=== PATIENT | female | born 1930 | race Caucasian/White ===

== ENCOUNTER 2018-02-18 10:04 | Emergency (ER) | payer MEDICARE, MEDICAID, OTHER ==
[2018-02-18 10:24] LABS: BEDSIDE GLUCOSE 155 MG/DL (83-110)
[2018-02-18] MEDS: NS 500 ML IV (10:26)
[2018-02-18 11:06] LABS: ABG BASE EXCESS -3.7 (-2.0-2.0); ABG HCO3 20.2 MEQ/L (22.0-26.0); ABG O2 SATURATION 98.7 % (95.0-99.0); ABG PARTIAL PRESSURE CO2 34.1 mmHg (35.0-45.0); ABG PARTIAL PRESSURE O2 125.2 mmHg (75.0-100.0); ABG STANDARD HCO3 21.5 MEQ/L (22.0-26.0); ABG TOTAL CO2 21.3 MEQ/L (23.0-31.0); ABG pH (ARTERIAL) 7.391 UNITS (7.350-7.450)
[2018-02-18 11:19] LABS: BASO # 0.1 10^3/uL (0.0-0.2); BASO % 0.2 % (0.0-1.0); HEMATOCRIT 52.2 % (36.0-47.0); HEMOGLOBIN 17.9 g/dl (12.0-15.5); IMMATURE GRANULOCYTE % 0.7 % (0-3.0); LYMPH % 3.7 % (24.0-44.0); MEAN CORPUSCULAR HGB CONC 34.3 g/dl (32.0-36.5); MEAN CORPUSCULAR VOLUME 96.3 fl (80.0-96.0); MONO # 1.7 10^3/uL (0.0-0.8); MONO % 6.6 % (0.0-5.0); NEUTROPHILS # 23.1 10^3/uL (1.8-7.7); NEUTROPHILS % 88.8 % (36.0-66.0); PLATELET COUNT, AUTOMATED 168 10^3/uL (150-450); RED BLOOD COUNT 5.42 10^6/uL (4.00-5.40); RED CELL DISTRIBUTION WIDTH 13.2 % (11.5-14.5)
[2018-02-18] MEDS: NS 1,000 ML IV (11:36)
[2018-02-18 11:42] LABS: LACTIC ACID SEPSIS PROTOCOL 5.8 MMOL/L (0.4-2.0)
[2018-02-18 11:43] LABS: AMMONIA 22 uMOL/L (<32)
[2018-02-18 11:49] LABS: ALBUMIN/GLOBULIN RATIO 1.03 (1.00-1.93); ALKALINE PHOSPHATASE 116 U/L (45-117); ALT/SGPT 17 U/L (12-78); ANION GAP 18 MEQ/L (8-16); AST/SGOT 35 U/L (7-37); BILIRUBIN,DIRECT 0.2 MG/DL (0.0-0.2); BILIRUBIN,TOTAL 1.3 MG/DL (0.2-1.0); BLOOD UREA NITROGEN 46 MG/DL (7-18); CALCIUM LEVEL 8.7 MG/DL (8.8-10.2); CARBON DIOXIDE LEVEL 17 MEQ/L (21-32); CHLORIDE LEVEL 111 MEQ/L (98-107); CK-MB VALUE MASS 4.4 NG/ML (<3.6); CPK CREATINE PHOSPHOKINASE 101 U/L (26-192); CREATININE FOR GFR 2.77 MG/DL (0.55-1.30); GLOMERULAR FILTRATION RATE 17.2 (>32); GLUCOSE, FASTING 157 MG/DL (70-100); MB/CK RELATIVE INDEX 4.35 (< OR =4); SODIUM LEVEL 146 MEQ/L (136-145); THYROID STIMULATING HORMONE 0.559 uIU/ML (0.358-3.740); TOTAL PROTEIN 5.9 GM/DL (6.4-8.2)
[2018-02-18 11:51] LABS: POTASSIUM SERUM 5.8 MEQ/L (3.5-5.1)
[2018-02-18 12:04] LABS: OSMOLALITY SERUM 320 MOSM/KG (280-301)
== END 2018-02-18 15:20 | disposition home or self-care (01) ==
LOC: M ED 10:04
DX: N17.9 Acute kidney failure, unspecified (principal); E86.0 Dehydration; F03.90 Unspecified dementia, unspecified severity, without behavioral disturbance, psychotic disturbance, mood disturbance, and anxiety; I10 Essential (primary) hypertension
CPT/HCPCS: 71045